=== PATIENT | female | born 1955 | race Caucasian/White ===

== ENCOUNTER 2016-07-25 21:34 | Emergency (ER) | payer SELFPAY ==
[~2016-07-25 21:34] MED LIST: FOLVITE-DPS1 MG PO; MAALOX DPS30 ML PO; MAG-OX400 MG PO; MULTIVITAMINS1 EAC1 PO; PROVENTIL HFA6.7 GM IH; SURFAK240 MG PO; TYLENOL325 MG PO; VITAMIN B1100 MG PO; ZITHROMAX250 MG PO
--- NOTE | 2016-07-27 21:30 | ER ---
ADMIT: 07/25/2016 RM/LOC: ER [facility] MR#: [id number] [id number] [facility] [address] [place], [place] [address] [facility] [address] [place] [address] Emergency Room Report SEX: F AGE: 61 : 1955 DATE: 07/25/2016 ADDENDUM: SUBJECTIVE: This patient comes in the ER because she is having lower back pain. Her pain is in her low back and goes down into both butt cheeks. She has a history of having chronic back pain. She also has noted some dysuria today. Her abdomen is soft. No tenderness concerning the flank area. Urinalysis showed 24 wbc's and 2+ leukocyte esterase. DIAGNOSES: 1. Chronic back pain. 2. Urinary tract infection. She was given Toradol 60 mg IM, and I wrote a prescription for Cipro for the next 5 days. She is to push fluids and follow up with her primary as needed. DIRK Barrett / Spencer Serna MD / jonathan JOB #: [id number] CC: Spencer Serna MD, Attending Physician Karime Monaco MD, Family Physician
[2017-01-21] MEDS ORDERED: CYMBALTA60 MG PO (15:29)
[2017-01-21] MEDS ORDERED: MAALOX DPS30 ML PO (15:30)
[2017-01-21] MEDS ORDERED: SYNTHROID DP0.025 MG PO (15:30)
== END 2016-07-25 23:15 | disposition home or self-care (01) ==
LOC: ER 21:34
DX: N39.0 Urinary tract infection, site not specified (principal); M54.5 Low back pain; G89.29 Other chronic pain; F41.9 Anxiety disorder, unspecified; F17.210 Nicotine dependence, cigarettes, uncomplicated; Z88.2 Allergy status to sulfonamides; Z88.8 Allergy status to other drugs, medicaments and biological substances; Z79.899 Other long term (current) drug therapy

== ENCOUNTER 2016-07-26 05:07 | Emergency (ER) | payer SELFPAY ==
--- NOTE | 2016-07-26 19:47 | ER ---
ADMIT: 07/26/2016 RM/LOC: ER [facility] MR#: [id number] [id number] [place], [place] [address] [facility] [address] [place] [address] Emergency Room Report SEX: F AGE: 61 : 1955 DATE: 07/26/2016 HISTORY OF PRESENT ILLNESS: The patient is a 61-year-old female with past medical history of chronic back pain and bipolar and hep C, came to the ER with chief complaint of chronic back pain and states she ran out of the Percocet medications. The patient denies any changes in the back pain, the quality and quantity. Denies any saddle anesthesia or new weakness or numbness or urinary or stool incontinence or retention. The patient also denies any fever or new trauma. PHYSICAL EXAMINATION: GENERAL: The patient was afebrile, sitting in the bed. NEUROLOGICAL: Gait was normal. The patient could not stand without difficulty and could walk on tiptoes and heels. Motor and sensory were grossly normal. There was no midline tenderness on the back. The rest of the physical exam was noncontributory. The patient received Percocet in the ER for pain control. The patient is stable to be discharged to home with followup with the primary doctor as needed. Spencer Serna MD/ jonathan JOB #: [id number] CC: Spencer Serna MD, Attending Physician Camilla Vizcaino APRN-WATCHSTANDER, Family Physician
[2017-01-21] MEDS ORDERED: CYMBALTA60 MG PO (15:29)
[2017-01-21] MEDS ORDERED: SYNTHROID DP0.025 MG PO (15:30)
[2017-01-21] MEDS ORDERED: MAALOX DPS30 ML PO (15:30)
== END 2016-07-26 05:40 | disposition home or self-care (01) ==
LOC: ER 05:07
DX: M54.5 Low back pain (principal); G89.29 Other chronic pain; F17.210 Nicotine dependence, cigarettes, uncomplicated

== ENCOUNTER 2016-07-27 09:24 | Emergency (ER) | payer SELFPAY ==
--- NOTE | 2016-07-29 15:00 | NUR ---
Received [facility] referral. Spoke with pt. 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 Pt is self pay. Gave pt contact information for [facility] and [facility]. Pt denies current thoughts of self harm.
--- NOTE | 2016-08-04 21:25 | ER ---
ADMIT: 07/27/2016 RM/LOC: ER [facility] MR#: [id number] [address] [id number] [facility] [address] [place] [address] Emergency Room Report SEX: F AGE: 61 : 1955 DATE: 07/27/2016 ADDENDUM: This patient comes into the ER because she has back pain and she would like a shot of Toradol. She has chronic back pain, it is in her low back, goes down to both of her legs. It is a normal type pain for her. She was given Toradol 60 mg IM. I did give her 1 Flexeril 10 mg p.o. She is to follow up with her primary as needed. Please see my T-sheet. DIRK Barrett / Lex Zee MD / jonathan JOB #: [id number] CC: Lex Zee MD, Attending Physician UNKNOWN, Family Physician
[2017-01-21] MEDS ORDERED: CYMBALTA60 MG PO (15:29)
[2017-01-21] MEDS ORDERED: SYNTHROID DP0.025 MG PO (15:30)
[2017-01-21] MEDS ORDERED: MAALOX DPS30 ML PO (15:30)
== END 2016-07-27 10:31 | disposition home or self-care (01) ==
LOC: ER 09:24
DX: M54.5 Low back pain (principal); G89.29 Other chronic pain; I10 Essential (primary) hypertension; Z88.2 Allergy status to sulfonamides; Z88.8 Allergy status to other drugs, medicaments and biological substances; Z79.899 Other long term (current) drug therapy